=== PATIENT | male | born 2000 | race Caucasian/White ===

== ENCOUNTER → 2019-11-18 | Outpatient (CLI) | payer OTHER ==
--- NOTE | 2019-11-18 12:54 | CT ---
EXAMINATION TYPE: CT abdomen wo con DATE OF EXAM: 11/18/2019 COMPARISON: None INDICATION: Patient complains of subumbilical pain just below iliac crest at level of scar. DLP: 268 mGycm, Automated exposure control for dose reduction was used. CONTRAST: None Study performed with Oral Contrast TECHNIQUE: Axial images were obtained from above the diaphragm to the iliac crests in the axial plane at 5 mm thick sections. Reconstructed images are reviewed on the computer in the coronal plane. FINDINGS: Limited CT sections are obtained the lung bases. The lung bases are clear. CT ABDOMEN: Liver: Normal Spleen: Normal Pancreas: Normal Adrenal glands: The adrenal glands are normal. Gallbladder: Normal Kidneys: No masses are evident. No hydronephrosis is present. No cysts are present. Delayed images were obtained through the kidneys, which remain unremarkable. Aorta: Vascular calcification is within the aorta. Inferior vena cava: Normal. Bowel: Loops of bowel with oral contrast appear normal. There are some loops of bowel lacking oral co ntrast are incompletely distended limiting their evaluation. Oral contrast extends to the hepatic fle xure of colon. IMPRESSIONS: 1. No acute abnormality
== END | disposition home or self-care (01) ==
LOC: RADCTMAIN 08:17
PROVIDERS: ATTEND Family Medicine
DX: R10.84 Generalized abdominal pain (principal)
CPT/HCPCS: 74150